=== PATIENT | female | born 1940 | race Caucasian/White ===

== ENCOUNTER 2018-12-26 14:05 | Emergency (ER) | payer MEDICARE, OTHER ==
[~2018-12-26] VITALS: Ht 157.5 cm; Wt 52.6 kg
--- OUTSIDE RECORDS SUMMARY | ~2018-12-26 | XMS | Clinical Summary ---
Demographics + + + | Address | [address] | | | [place] [address] | + + + | Home Phone | | + + + | Preferred Language | Unknown | + + + | Marital Status | | + + + | Amish Affiliation | 1026 | + + + | Race | Unknown | + + + | Ethnic Group | Unknown | + + + Author + + + | Author | [facility] | | | and [place] | + + + | Organization | [facility] | | | and [place] | + + + | Address | Unknown | + + + | Phone | Unavailable | + + + Support + + + + + | Name | Relationship | Address | Phone | + + + + + | Marycarmen Reardon | [address] | | | | | [place] | | + + + + + | Levy Hernandez | ECON | [address] | | | | | [place] | | | | | [address] | | + + + + + Care Team Providers + +------+ + | Care Movie Writer Name | Role | Phone | + +------+ + | Karan Robertson MD | PP | | + +------+ + Allergies Not on File Medications Not on file Active Problems Not on file Social History + +-------+ +--------+------+ | Tobacco Use | Types | Packs/Day | Years | Date | | | | | Used | | + +-------+ +--------+------+ | Never Assessed | | | | | + +-------+ +--------+------+ + + + | Sex Assigned at | Date Recorded | | | | + + + | Not on file | | + + + + + + + | Job Start Date | Occupation | Industry | + + + + | Not on file | Not on file | Not on file | + + + + + + + + | Travel History | Travel Start | Travel End | + + + + + + | No recent travel history available. | + + Plan of Treatment + + + + + | Health Maintenance | Due Date | Last Done | Comments | + + + + + | Vaccine: | | | | | Dtap/Tdap/Td (1 - | 2 | | | | Tdap) | | | | + + + + + | Vaccine: Zoster (1 | | | | | of 2) | 3 | | | + + + + + | Vaccine: | | | | | Pneumococcal 65+ | 8 | | | | Low/Medium Risk (1 | | | | | of 2 - PCV13) | | | | + + + + + | Vaccine: Influenza | | | | | (Season Ended) | 9 | | | + + + + + Results Not on filefrom Last 3 Months Insurance + +--------+ +--------+ +---------+--------+ | Payer | Benefi | Subscriber | Effect | Phone | Address | Type | | | t Plan | ID | kt | | | | | | / | | Dates | | | | | | Group | | | | | | + +--------+ +--------+ +---------+--------+ | MEDICARE | MEDICA | [id number] | | [phone] | | Medica | | | RE | | 007-Pr | 5 | | re | | | PART A | | esent | | | | | | AND B | | | | | | + +--------+ +--------+ +---------+--------+ | UNITED [employer] | UNITED | [id number] | 08/27/19 | [phone] | | PPO | | | | | 12-Pre | 2 | | | | | HEALTH | | sent | | | | | | CARE | | | | | | | | PPO | | | | | | + +--------+ +--------+ +---------+--------+ + +--------+ +--------+ + + | Guarantor Name | Accoun | Relation to | Date | Phone | Billing Address | | | t Type | Patient | of | | | | | | | | | | + +--------+ +--------+ + + | Alicia Hernandez | Person | Self | [birth year] | [address] | | E | al/Fam | | 1941 | [phone] | [place] [address] | | | vianey | | | 8 (Home) | | + +--------+ +--------+ + + Advance Directives Patient has advance care planning documents on file. For more information, please contact:[facility] [place] [address]"
--- OUTSIDE RECORDS SUMMARY | ~2018-12-26 | XMS | Clinical Summary ---
Demographics + + + | Address | [address] | | | [place] [address] | + + + | Home Phone | | + + + | Preferred Language | Unknown | + + + | Marital Status | | + + + | Jainism Affiliation | NON | + + + | Race | White | + + + | Ethnic Group | Not or | + + + Author + + + | Author | NON REVENUE LOCATIONS | + + + | Organization | NON REVENUE LOCATIONS | + + + | Address | Unknown | + + + | Phone | Unavailable | + + + Support + + + + + | Name | Relationship | Address | Phone | + + + + + | PRAKASH GONSALES | ECON | [address] | | | | | [place] | | | | | [address] | | + + + + + | Marycarmen Reardon | ECON | Unknown | | + + + + + Care Team Providers + +------+ + | Care Rotary Veneer Machine Operator Name | Role | Phone | + +------+ + PP | Unavailable | + +------+ + Source Comments JOSE RAFAEL is fully live on both [facility] and [facility] Allergies Not on File Current Medications Not on file Active Problems Not [...] on file | | + + + Plan of Treatment + + + + + | Health Maintenance | Due Date | Last Done | Comments | + + + + + | Pneumococcal (Adult) | | | | | (1 of 2 - PCV13) | 8 | | | + + + + + | Influenza (Flu) | | | | | vaccination (Season | 9 | | | | Ended) | | | | + + + + + Results Not on filefrom Last 3 Months"
--- OUTSIDE RECORDS SUMMARY | ~2018-12-26 | XMS | Clinical Summary ---
Demographics + + + | Address | [address] | | | [place] [address] | + + + | Home Phone | | + + + | Preferred Language | Unknown | + + + | Marital Status | | + + + | Hoahaoism Affiliation | Unknown | + + + | Race | Unknown | + + + | Ethnic Group | Unknown | + + + Author + + + | Author | [facility] | + + + | Organization | [facility] | + + + | Address | Unknown | + + + | Phone | Unavailable | + + + Support + + + + + | Name | Relationship | Address | Phone | + + + + + | Levy Hernandez | ECON | [address] | | | | | [place] | | | | | [address] | | + + + + + Care Team Providers + +------+ + | Care Sales Representative [facility] Name | Role | Phone | + +------+ + | Dr. Clemente | PP | Unavailable | + +------+ + Allergies Not on File Current Medications Not [...] | + + + Plan of Treatment Not on file Results Not on filefrom Last 3 Months"
--- OUTSIDE RECORDS SUMMARY | ~2018-12-26 | XMS | Clinical Summary ---
Demographics + + + | Address | [address] | | | [place] [address] | + + + | Home Phone | | + + + | Preferred Language | Unknown | + + + | Marital Status | | + + + | Scientology Affiliation | 1026 | + + + | Race | Unknown | + + + | Ethnic Group | Unknown | + + + Author + + + | Author | [facility] | | | and [place] | + + + | Organization | [facility] | | | and [place] | + + + | Address | Unknown | + + + | Phone | Unavailable | + + + Support + + + + + | Name | Relationship | Address | Phone | + + + + + | Marycarmen Reardon | [address] | | | | | [place] | | + + + + + | Levy Hernandez | ECON | [address] | | | | | [place] | | | | | [address] | | + + + + + Care Team Providers + +------+ + | Care Golf Course Manager Name | Role | Phone | + [...] +--------+ +---------+--------+ | MEDICARE | MEDICA | [id number] | | [phone] | | Medica | | | RE | | 007-Pr | 5 | | re | | | PART A | | esent | | | | | | AND B | | | | | | + +--------+ +--------+ +---------+--------+ | UNITED HE[employer]ARE | UNITED | [id number] | 08/27/19 | [phone] | | PPO [...] E | al/Fam | | 1941 | [phone] | [place] [address] | | | vianey | | | 8 (Home) | | + +--------+ +--------+ + + Advance Directives Patient has advance care planning documents on file. For more information, please contact:[facility] [address] [place] [address]"
--- OUTSIDE RECORDS SUMMARY | ~2018-12-26 | XMS | Clinical Summary ---
Demographics + + + | Address | [address] | | | [place] [address] | + + + | Home Phone | | + + + | Preferred Language | Unknown | + + + | Marital Status | | + + + | Zoroastrian Affiliation | NON | + + + [...] [place] | | | | | [address] | | + + + + + | Marycarmen Reardon | ECON | Unknown | | + + + + + Care Team Providers + +------+ + | Care Marketing Developer Name | Role | Phone | + +------+ + PP | Unavailable | + +------+ + Source Comments JOSE RAFAEL is fully live on both [facility] and [facility] InPatient.[facility] Allergies Not on File Current Medications Not [...]
--- OUTSIDE RECORDS SUMMARY | ~2018-12-26 | XMS | Clinical Summary ---
Demographics + + + | Address | [address] | | | [place] [address] | + + + | Home Phone | | + + + | Preferred Language | Unknown | + + + | Marital Status | | + + + | Religion Affiliation | Unknown | + + + | Race | Unknown | + + + | Ethnic Group | Unknown | + + + Author + + + | Author | [facility] | + + + | Organization | [facility] | + + + | Address | Unknown | + + + | Phone | Unavailable | + + + Support + + + + + | Name | Relationship | Address | Phone | + + + + + | Levy Hernandez | ECON | [address] | | | | | [place] | | | | | [address] | | + + + + + Care Team Providers + +------+ + | Care Resource Conservation Manager Name | Role | Phone | [...]
[~2018-12-26 14:05] MED LIST: BENZONATATE100 MG PO; CARAFATE1 GM/10 ML PO; CARISOPRODOL350 MG PO; CLONAZEPAM2 MG PO; COMBIVENT INH14.7 GM INH; CONSTULOSE10 GM/15 M PO; DICYCLOMINE HCL20 MG PO; DILAUDID2 MG PO; DOXEPIN HCL50 MG PO; ESTRACE2 MG PO; EVOXAC30 MG PO; FLOVENT HFA10.6 GM INH; IBU800 MG PO; IPRAT-ALBUT 0.5-3 ML IH; ISOSORBIDE MONO30 MG PO; MORPHINE SULFAT15 MG PO; NITRO-BID1 INCH TD; NITROSTAT0.4 MG SL; NORVASC5 MG PO; OMEPRAZOLE20 M1 PO; OXYCONTIN10 MG PO; PANTOPRAZOLE SO20 MG PO; PERCOCET 5-3251 EACH PO; PLAQUENIL200 MG PO; PROAIR HFA8.5 GM IH; PROZAC20 MG PO; SIMVASTATIN20 MG PO; SYNTHROID50 MCG PO; TETRACYCLINE H250 MG PO; TRIAMCINOLONE A15 G1 TOP; ZOFRAN4 MG PO
== END 2018-12-26 15:32 | disposition home or self-care (01) ==
LOC: ED 14:05
DX: S01.81XA Laceration without foreign body of other part of head, initial encounter (principal); W01.198A Fall on same level from slipping, tripping and stumbling with subsequent striking against other object, initial encounter; Z88.5 Allergy status to narcotic agent; Z88.8 Allergy status to other drugs, medicaments and biological substances; Z88.0 Allergy status to penicillin; Z79.899 Other long term (current) drug therapy; Z79.891 Long term (current) use of opiate analgesic
CPT/HCPCS: 90471; 90714; 99283

== ENCOUNTER 2021-02-01 13:34 | Emergency (ER) | payer MEDICARE, OTHER ==
[~2021-02-01] VITALS: Ht 157.5 cm; Wt 52.6 kg
== END 2021-02-01 16:08 | disposition home or self-care (01) ==
LOC: ED 13:34
DX: S46.001A Unspecified injury of muscle(s) and tendon(s) of the rotator cuff of right shoulder, initial encounter (principal); W01.198A Fall on same level from slipping, tripping and stumbling with subsequent striking against other object, initial encounter; Z88.5 Allergy status to narcotic agent; Z88.8 Allergy status to other drugs, medicaments and biological substances; Z88.0 Allergy status to penicillin; Z79.899 Other long term (current) drug therapy; Z79.891 Long term (current) use of opiate analgesic; Y93.02 Activity, running
CPT/HCPCS: 73030; 99283-25

== ENCOUNTER 2021-08-21 10:32 | Emergency (ER) | payer MEDICARE, OTHER ==
[~2021-08-21] VITALS: Ht 157.5 cm; Wt 59.0 kg
[2021-08-21] MEDS ORDERED: CEPHALEXIN500 M1 PO (13:05)
== END 2021-08-21 13:15 | disposition home or self-care (01) ==
LOC: ED 10:32
DX: L03.011 Cellulitis of right finger (principal); M06.9 Rheumatoid arthritis, unspecified; Z88.5 Allergy status to narcotic agent; Z88.8 Allergy status to other drugs, medicaments and biological substances; Z88.0 Allergy status to penicillin; Z79.899 Other long term (current) drug therapy; Z79.891 Long term (current) use of opiate analgesic
CPT/HCPCS: 73140; 99283-25

== ENCOUNTER 2021-10-23 05:04 | Emergency (ER) | payer MEDICARE ==
[~2021-10-23] VITALS: Ht 157.5 cm; Wt 59.0 kg
[~2021-10-23 05:04] MED LIST changes: +CEPHALEXIN500 M1 PO
[2021-10-23] MEDS ORDERED: CYCLOBENZAPRINE10 MG PO (06:55)
[2021-10-23] MEDS ORDERED: HYDROCODON-ACE1 EA10 PO (06:55)
[2021-10-23] MEDS ORDERED: VALACYCLOVIR1000 MG PO (06:55)
== END 2021-10-23 07:05 | disposition home or self-care (01) ==
LOC: ED 05:04
DX: M54.42 Lumbago with sciatica, left side (principal); B02.9 Zoster without complications; M06.9 Rheumatoid arthritis, unspecified; Z88.5 Allergy status to narcotic agent; Z88.8 Allergy status to other drugs, medicaments and biological substances; Z88.0 Allergy status to penicillin; Z79.899 Other long term (current) drug therapy; Z79.51 Long term (current) use of inhaled steroids; Z79.891 Long term (current) use of opiate analgesic
CPT/HCPCS: 72100; 96374; 96375; 96376; 99283-25; J1170; J2405; J2930

== ENCOUNTER 2021-10-28 08:16 | Emergency (ER) | payer MEDICARE ==
[~2021-10-28] VITALS: Ht 157.5 cm; Wt 57.6 kg
[~2021-10-28 08:16] MED LIST changes: +CYCLOBENZAPRINE10 MG PO; +HYDROCODON-ACE1 EA10 PO; +VALACYCLOVIR1000 MG PO
[2021-10-28] MEDS ORDERED: LISINOPRIL10 MG PO (09:20)
[2021-10-28] MEDS ORDERED: ZALEPLON5 MG PO (09:20)
[2021-10-28] MEDS ORDERED: CELECOXIB100 MG PO (09:20)
[2021-10-28] MEDS ORDERED: CYCLOBENZAPRINE10 MG PO (11:05)
[2021-10-28] MEDS ORDERED: HYDROCODON-ACE1 EA10 PO (11:05)
== END 2021-10-28 11:37 | disposition home or self-care (01) ==
LOC: ED 08:16
DX: M54.42 Lumbago with sciatica, left side (principal); M06.9 Rheumatoid arthritis, unspecified; Z88.5 Allergy status to narcotic agent; Z88.8 Allergy status to other drugs, medicaments and biological substances; Z88.0 Allergy status to penicillin; Z79.899 Other long term (current) drug therapy; Z79.51 Long term (current) use of inhaled steroids
CPT/HCPCS: 36415; 80048; 85025; 96374; 96375; 99283-25; J1100; J1885

== ENCOUNTER 2022-05-09 16:34 | Emergency (ER) | payer MEDICARE ==
[~2022-05-09] VITALS: Ht 157.5 cm; Wt 57.6 kg
[~2022-05-09 16:34] MED LIST changes: +CELECOXIB100 MG PO; +CEPHALEXIN500 MG PO; +LISINOPRIL10 MG PO; +ZALEPLON5 MG PO
== END 2022-05-09 18:49 | disposition home or self-care (01) ==
LOC: ED 16:34
DX: B34.9 Viral infection, unspecified (principal); Z20.822 Contact with and (suspected) exposure to COVID-19; M06.9 Rheumatoid arthritis, unspecified; Z88.5 Allergy status to narcotic agent; Z88.8 Allergy status to other drugs, medicaments and biological substances; Z88.0 Allergy status to penicillin; Z79.899 Other long term (current) drug therapy
CPT/HCPCS: 87502; 99283; C9803; U0003

== ENCOUNTER 2022-12-27 09:20 | Emergency (ER) | payer MEDICARE ==
[~2022-12-27] VITALS: Ht 157.5 cm; Wt 57.6 kg
[2022-12-27 11:48] VITALS: BP 127/71
== END 2022-12-27 11:48 | disposition home or self-care (01) ==
LOC: ED 09:20
DX: S20.212A Contusion of left front wall of thorax, initial encounter (principal); W17.89XA Other fall from one level to another, initial encounter; Z88.5 Allergy status to narcotic agent; Z88.0 Allergy status to penicillin; Z88.8 Allergy status to other drugs, medicaments and biological substances; Z79.890 Hormone replacement therapy; Z79.899 Other long term (current) drug therapy
CPT/HCPCS: 71046